=== PATIENT | female | born 1950 | race Caucasian/White ===

== ENCOUNTER 2016-06-13 14:22 | Emergency (ER) | payer BC, OTHER ==
[~2016-06-13] VITALS: Ht 170.2 cm; Wt 69.0 kg
[2016-06-13] MEDS ORDERED: LIPITOR10 MG PO (14:27)
[2016-06-13] MEDS ORDERED: IBUPROFEN 600600 M1 PO (15:24)
[2016-06-13] MEDS ORDERED: NORCO 5-325 TA1 EACH PO (15:24)
[2016-06-13 16:24] VITALS: BP 115/57
== END 2016-06-13 16:44 | disposition home or self-care (01) ==
LOC: ER 14:22
DX: S42.202A Unspecified fracture of upper end of left humerus, initial encounter for closed fracture (principal); W19.XXXA Unspecified fall, initial encounter; Y93.89 Activity, other specified; Y92.000 Kitchen of unspecified non-institutional (private) residence as the place of occurrence of the external cause; Y99.8 Other external cause status